=== PATIENT | female | born 1935 | race Caucasian/White ===

== ENCOUNTER 2018-01-06 19:06 | Inpatient (IN) | payer OTHER ==
[~2018-01-06] VITALS: Ht 162.6 cm; Wt 54.4 kg
--- NOTE | 2018-01-06 19:34 | ED DYSPNEA/ASTHMA COMPLAINT ---
History of Present Illness General Chief Complaint: General Adult Stated Complaint: SOB,?PNEUMONIA Source: patient, family, old records Exam Limitations: no limitations Vital Signs & Intake/Output Vital Signs & Intake/Output Vital Signs Date Time Temp Pulse Resp B/P B/P Pulse O2 O2 Flow FiO2 Mean Ox Delivery Rate 01/06 2233 98.3 66 22 99/55 97 Nasal 1.5L Cannula 01/06 2146 98.3 88 16 136/79 98 Nasal 1.5L Cannula 01/06 2002 99 Nasal 1.5L Cannula 01/06 1950 100 Nasal 1.5L Cannula 01/06 1927 99.3 84 18 149/87 93 Room Air ED Intake and Output 01/07 0000 01/06 1200 Intake Total 180 Output Total Balance 180 Intake, Oral 180 Allergies Coded Allergies: Penicillins (RASH 01/06/18) amlodipine (RASH 01/06/18) atorvastatin (MUSCLE PAIN 01/06/18) cefuroxime (From CEFTIN) (GI UPSET 01/06/18) moxifloxacin (HALLUCINATIONS BUT PT STATES LEVAQUIN WORKS 01/06/18) simvastatin (RASH 01/06/18) vancomycin (GI UPSET 01/06/18) Reconcile Medications Aspirin (Aspirin*) 325 MG TABLET 1 TAB PO DAILY HEART/BLOOD (Reported) Azelastine/Fluticasone (Dymista Nasal [place]) 137 MCG-50 MCG/SPRAY SPRAY.PUMP 2 SPRAY NASB BID ALLERGIES (Reported) Biotin 5,000 MCG TAB.SUBL 1 TAB PO DAILY SUPPLEMENT (Reported) Calcium Carbonate/Vitamin D3 (Caltrate 600 + D Tablet) (Unknown Strength) TABLET (Unknown Dose) PO DAILY SUPPLEMENT (Reported) Cholecalciferol (Vitamin D3) (Vitamin D) (Unknown Strength) TABLET (Unknown Dose) PO DAILY SUPPLEMENT (Reported) Hydrochlorothiazide 25 MG TABLET 1 TAB PO QAM DIURETIC (Reported) Levothyroxine Sodium (Synthroid) 100 MCG TABLET 1 TAB PO DAILY AC THYROID ( Reported) Metoprolol Succinate 25 MG TAB 0.5 TAB PO DAILY HEART/BP (Reported) [place]-3 Fatty Acids/Fish Oil (Fish Oil 1,200 MG Softgel) 360 MG-1,200 MG CAPSULE 1 SGL PO QPM SUPPLEMENT (Reported) Vitamin B Complex 1 EACH CAPSULE 1 CAP PO DAILY SUPPLEMENT (Reported) Triage Note: PT TO TRIAGE C/O SOB THAT BEGAN TODAY WITH +PRODUCTIVE COUGH. PER PT HX OF PNEUMONIA. 02 SAT 93% IN TRIAGE ON RA, BROUGHT TO ROOM 1 AND PLACED ON 2L NC WITH IMPROVEMENT TO 96%. Triage Nurses Notes Reviewed? yes Onset: Abrupt Duration: day(s): (1), constant Timing: recent history Severity: moderate Activities at Onset: none Prior Episodes/Possible Cause: chronic episodes Modifying Factors: Worsens With: other (coughing). Associated Symptoms: cough, fever, chills HPI: 82-year-old female History of high cholesterol hypertension bronchiectasis with recurrent pneumonia not on home o2 presents with family for evaluation playing of sudden onset of shortness of breath cough productive of clear sputum subjective fever chills since today. She did not take anything for her symptoms no sick contacts. She denies chest pain palpitations hemoptysis abdominal pain leg swelling. She does not smoke. This episode feels similar to her previous episodes of pneumonia. (Emmanuel Camejo) Past History Travel History Traveled to [place] past 21 day No Medical History Any Pertinent Medical History? see below for history Neurological: NONE EENT: NONE Cardiovascular: hypertension, hyperlipidemia, AORTIC ANEURYSM Respiratory: pneumonia Gastrointestinal: NONE Hepatic: NONE Renal: NONE Musculoskeletal: NONE Psychiatric: NONE Endocrine: HYPOTHYROID Blood Disorders: NONE Cancer(s): NONE TIP SCOURER/Reproductive: NONE History of MRSA: No History of VRE: No History of CDIFF: No Pneumonia Vaccine: 02/01/13 Influenza Vaccine: 06/27/13 Surgical History Surgical History: AAA REPAIR Psychosocial History Who do you live with Patient/Self Services at Home None What is your primary language Lithuanian Tobacco Use: Never used Family History Hx Contributory? No (Emmanuel Camejo) Review of Systems Review of Systems Constitutional: Reports: see HPI. Comments Review of systems: See HPI, All other systems negative. Constitutional, no chills no fever, no malaise HEENT: no sore throat no congestion Cardiovascular: No chest pain , no palpitation Skin: no rashes, no change in skin Respiratory: SEE HPI GI: No nausea no vomiting, no diarrhea Muscle skeletal: No joint pain, no back pain Neurologic: , no headache Heme/endocrine: No bruising Immunology: No lymphadenopathy (Emmanuel Camejo) Physical Exam Physical Exam General Appearance: alert, awake, moderate distress Respiratory: decreased breath sounds Comments: Well-developed well-nourished person in no acute distress HEENT: Normal EENT exam; PERRL, EOMI, HEAD is atraumatic. moist mucous membranes. Neck: Supple, no lymphadenopathy, normal range of motion Back: Nontender, no CVA tenderness. Full range of motion Cardiovascular: Regular rate and rhythms no murmur normal JVP Respiratory: Chest nontender.There were no bony deformities, no asymmetry. No respiratory distress. Patient 3-4 WORD /sentences diminished breath sounds bilaterally no rhonchi no rales Abdomen: Soft, nontender nondistended, no appreciable organomegalyNo ascites. Extremity: No edema, full range of motion of extremities Neuro: Alert oriented x3, motor sensory normal. There were no obvious focal neurologic abnormalities. Skin: No appreciable rash on exposed skin, skin is warm and dry. Psych: Mood and affect is normal, memory and judgment is normal. Core Measures ACS in differential dx? Yes CVA/TIA Diagnosis No Sepsis Present: No Sepsis Focused Exam Completed? No (Uday TORRES,Emmanuel) Progress Differential Diagnosis: asthma, AMI, bronchitis, musculoskeletal pain, pericarditis, pulmonary embolism, pneumonia, pneumothorax, unstable angina Plan of Care: Orders Procedure Date/time Status Nothing by Mouth 01/07 B Active CBC WITHOUT DIFFERENTIAL 01/07 600 Active BASIC ELECTROLYTES PLUS BUN&CR 01/07 06 Active SPECIMEN TO BE OBTAINED 01/07 0004 Active STREP PNEUMO URINARY ANTIGEN 01/07 0004 Active LEGIONELLA URINARY ANTIGEN 01/07 0004 Active SWALLOW EVALUATION 01/07 UNK Active TRC EVALUATION (GEN) 01/06 2350 Active OXYGEN SETUP (GEN) 01/06 235 Active Pathway - chart 01/06 235 Active House Staff 01/06 235 Active Patient Data 01/06 2325 Active Intake & Output 01/06 214 Active OXYGEN SETUP (GEN) 01/06 2117 Active Saline Lock 01/06 2117 Active Admit to inpatient 01/06 2117 Active Vital Signs 01/06 2117 Active Activity/Ambulation 01/06 2117 Active Code Status 01/06 2117 Active Telemetry/Transit Bus Operator 01/06 1946 Active RAPID VIRAL INFLUENZA A 01/06 193 Complete BLOOD CULTURE 01/06 1915 Active TROPONIN LEVEL 01/06 1915 Complete LACTIC ACID 01/06 1915 Complete COMPREHENSIVE METABOLIC PANEL 01/06 1915 Complete CBC WITHOUT DIFFERENTIAL 01/06 1915 Complete B-TYPE NATRIURETIC PEP (BNP) 01/06 1915 Complete EKG 01/06 190 Active VTE Mechanical Prophylaxis 01/06 UNK Active Current Medications Sig/Rose Start time Last Medication Dose Stop Time Status Admin Enoxaparin Sodium 40 MG DAILY 01/07 1000 UNVr (Lovenox) Sodium Chloride 1,000 ML Q10H 01/07 0015 UNVr (Normal Saline 0.9%) Laboratory Tests 01/06/18 2215: Lactic Acid Cancelled 01/06/18 2100: Anion Gap 10, Estimated GFR > 60, BUN/Creatinine Ratio 20.0, Glucose 106 H, Lactic Acid 1.6, Calcium 9.7, Total Bilirubin 0.8, AST 29, ALT 25, Alkaline Phosphatase 95, Troponin I < 0.01, Jxi-V-[place] Pept 585 H, Total Protein 7.7, Albumin 3.6, Globulin 4.1, Albumin/Globulin Ratio 0.9 L 01/06/181999: CBC w Diff NO MAN DIFF REQ, RBC 4.83, MCV 87.9, MCH 29.3, MCHC 33.3, RDW 15.6 H , MPV 8.4, Gran % 89.8 H, Lymphocytes % 3.6 L, Monocytes % 6.2, Eosinophils % 0.2, Basophils % 0.2, Absolute Granulocytes 7.9 H, Absolute Lymphocytes 0.3 L, Absolute Monocytes 0.5, Absolute Eosinophils 0, Absolute Basophils 0 Microbiology 01/07 0004 URINE ROUT: Legionella Antigen - ORD 01/08 4 URINE ROUT: Streptococcus pneumoniae Antigen (M - ORD 01/06 2100 NASOPHARYN: Influenza Virus A & B Rapid Smear - COMP 01/07 2040 BLOOD: Blood Culture - RECD 01/06 1815 BLOOD: Blood Culture - RECD Labs ordered patient medicated with Solu-Medrol breathing treatment Patient reports feeling improved after DuoNeb 2119 repeat evaluation should resting in no apparent distress 93% on 2 L discussed with him her x-ray findings and plan of care. Diagnostic Imaging: Viewed by Me: Radiology Read. Discussed w/RAD: Radiology Read. Radiology Impression: PATIENT: SAVAGE ANN PRESENT AGE: 82 PATIENT ACCOUNT NO: [id number] : 37 LOCATION: [facility] ORDERING PHYSICIAN: Emmanuel TORRES SERVICE DATE: 01/06/18 EXAM TYPE: RAD - XRY- PORTABLE CHEST XRAY EXAMINATION: CHEST 1 VIEW CLINICAL INFORMATION: Cough, fever , shortness of breath. COMPARISON: 08/06/2013. TECHNIQUE: An AP view of the chest is provided. FINDINGS: The cardiac silhouette is enlarged, though stable. Intact midline sternal wires are present. There is a moderate right pleural effusion and a small left pleural effusion. There is associated airspace disease. The osseous structures are stable. IMPRESSION: Stable cardiomegaly with right greater than left bilateral pleural effusions with associated airspace disease. DICTATED BY: Marty Ovalles MD DATE/TIME DICTATED:01/06/182041 MODEL MAKER FIBERGLASS:JAMAL DATE/TIME TRANSCRIBED:01/06/182041 CONFIDENTIAL, DO NOT COPY WITHOUT APPROPRIATE AUTHORIZATION. <Electronically signed in Other Vendor System> SIGNED BY: Mraty Ovalles MD 01/06/182044, PATIENT: SAVAGE ANN PRESENT AGE: 82 PATIENT ACCOUNT NO: [id number] : 37 LOCATION: [facility] ORDERING PHYSICIAN: Emmanuel TORRES SERVICE DATE: 01/06/18 EXAM TYPE: CAT - CT CHEST WO IV CONTRAST EXAMINATION : CT CHEST WITHOUT CONTRAST CLINICAL INFORMATION: Cough, fever, dyspnea. COMPARISON: Same day chest radiograph. TECHNIQUE: Contiguous axial thin section helical images of the chest were performed without contrast. The data set was reformatted in the coronal and sagittal planes and reviewed on an independent workstation. DLP: 178 mGy-cm. FINDINGS: The heart is of normal size. There is no pericardial effusion. There is neither mediastinal, hilar nor axillary lymphadenopathy. There are no chest wall masses. There is a moderate right pleural effusion. There is a wedge-shaped opacification within both lower lobes with bronchiectasis. There is scarring within the medial right upper lobe. Images of the upper abdomen demonstrate that the liver is of normal size and attenuation without focal lesions. Normal adrenal glands are identified. Bone windows: Neither sclerotic nor lytic bone lesions are identified. There is mild to moderate osteophyte formation throughout the thoracic spine. IMPRESSION: Moderate right pleural effusion. Bilateral lower lobe consolidations. Medial right upper lobe scarring. Recommendation is for a followup chest series to be obtained following treatment and/or resolution of symptoms to assure resolution of this appearance. DICTATED BY: Marty Ovalles MD DATE/TIME DICTATED:04/05/18 / 2316 MODEL MAKER FIBERGLASS:JAMAL DATE/TIME TRANSCRIBED:01/06/182315 CONFIDENTIAL, DO NOT COPY WITHOUT APPROPRIATE AUTHORIZATION. <Electronically signed in Other Vendor System> SIGNED BY: Marty Ovalles MD 01/06/182321 Initial ED EKG: normal intervals, normal p-waves, normal QRS complex, normal sinus rhythm, nonspecific ST T wave chg Rhythm Strip: normal sinus rhythm (Emmanuel Camejo) Departure Departure Time of Disposition: 2234 Disposition: STILL A PATIENT Condition: Stable Clinical Impression Primary Impression: Pneumonia Secondary Impressions: Pleural effusion Referrals: Gordon Mcmillan MD, I. (PCP/Family) Departure Forms: Customer Survey General Discharge Information Admission Note Spoke With: Kelton Orlando MD Documentation of Exam: Documentation of any treatments & extenuating circumstances including Concerns Regarding Discharge (functional status, medication knowledge or non-compliance, living conditions, etc.) that warrant an admission rather than observation: IV antibiotics, IV steroids trend labs premature discharge would BE medically harmful respiratory treatments when necessary PulM consult (Emmanuel Camejo) PA/FORENSIC ANTHROPOLOGIST Co-Sign Statement Statement: ED Attending supervision documentation- x I saw and evaluated the patient. I have also reviewed all the pertinent lab results and diagnostic results. I agree with the findings and the plan of care as documented in the PA's/FORENSIC ANTHROPOLOGIST's documentation. Hx bronchiectasis with pneumonia [] I have reviewed the ED Record and agree with the PA's/FORENSIC ANTHROPOLOGIST's documentation. [] Additions or exceptions (if any) to the PAs/FORENSIC ANTHROPOLOGIST's note and plan are summarized below: [] (Ankur VELAZCO,Rudi) Critical Care Note Critical Care Note Critical Care Time: non-applicable (Emmanuel Camejo)
[2018-01-06 20:21] LABS: ABSOLUTE BASOPHIL COUNT 0 /CUMM (0.0-0.2); ABSOLUTE EOSINOPHIL COUNT 0 /CUMM (0.0-0.7); ABSOLUTE GRANULOCYTE CT 7.9 /CUMM (1.4-6.5); ABSOLUTE LYMPH COUNT 0.3 /CUMM (1.2-3.4); ABSOLUTE MONOCYTE COUNT 0.5 /CUMM (0.10-0.60); BASOPHIL % 0.2 % (0.0-2.0); EOSINOPHIL % 0.2 % (0-5); GRANULOCYTE % 89.8 % (42.2-75.2); HEMATOCRIT 42.5 % (37-47); MEAN CORPUSCULAR HGB 29.3 PG (27.0-31.0); MEAN CORPUSCULAR HGB CONC 33.3 G/DL (33.0-37.0); MEAN CORPUSCULAR VOLUME 87.9 FL (81.0-99.0); MEAN PLATELET VOLUME 8.4 FL (7.4-10.4); PLATELET COUNT 262 /CUMM (130-400); RBC DISTRIBUTION WIDTH 15.6 % (11.5-14.5); RED BLOOD CELL CT 4.83 /CUMM (4.20-5.40); WHITE BLOOD CELL COUNT 8.8 /CUMM (4.8-10.8)
[2018-01-06] MEDS ORDERED: METOPROLOL SUCC25 M1 PO (20:24)
[2018-01-06] MEDS ORDERED: SYNTHROID100 MCG PO (20:24)
[2018-01-06] MEDS ORDERED: FISH OIL 1,2001 EAC4 PO (20:25)
[2018-01-06] MEDS ORDERED: DYMISTA NASAL S23 GM NASB (20:25)
[2018-01-06] MEDS ORDERED: HYDROCHLOROTHIA25 M1 PO (20:25)
[2018-01-06] MEDS ORDERED: CALTRATE 600 +1 EACH PO (20:26)
[2018-01-06] MEDS ORDERED: VITAMIN D1000 UNIT PO (20:26)
[2018-01-06] MEDS ORDERED: VITAMIN B COMP1 EACH PO (20:26)
[2018-01-06] MEDS ORDERED: ASPIRIN325 M2 PO (20:27)
[2018-01-06] MEDS ORDERED: BIOTIN5000 MC1 PO (20:27)
--- NOTE | 2018-01-06 20:45 | RADIOLOGY REPORT ---
EXAMINATION: CHEST 1 VIEW CLINICAL INFORMATION: Cough, fever, shortness of breath. COMPARISON: 08/06/2013. TECHNIQUE: An AP view of the chest is provided. FINDINGS: The cardiac silhouette is enlarged, though stable. Intact midline sternal wires are present. There is a moderate right pleural effusion and a small left pleural effusion. There is associated airspace disease. The osseous structures are stable. IMPRESSION: Stable cardiomegaly with right greater than left bilateral pleural effusions with associated airspace disease.
--- NOTE | 2018-01-06 23:22 | CT SCAN REPORT ---
EXAMINATION: CT CHEST WITHOUT CONTRAST CLINICAL INFORMATION: Cough, fever, dyspnea. COMPARISON: Same day chest radiograph. TECHNIQUE: Contiguous axial thin section helical images of the chest were performed without contrast. The data set was reformatted in the coronal and sagittal planes and reviewed on an independent workstation. DLP: 178 mGy-cm. FINDINGS: The heart is of normal size. There is no pericardial effusion. There is neither mediastinal, hilar nor axillary lymphadenopathy. There are no chest wall masses. There is a moderate right pleural effusion. There is a wedge-shaped opacification within both lower lobes with bronchiectasis. There is scarring within the medial right upper lobe. Images of the upper abdomen demonstrate that the liver is of normal size and attenuation without focal lesions. Normal adrenal glands are identified. Bone windows: Neither sclerotic nor lytic bone lesions are identified. There is mild to moderate osteophyte formation throughout the thoracic spine. IMPRESSION: Moderate right pleural effusion. Bilateral lower lobe consolidations. Medial right upper lobe scarring. Recommendation is for a followup chest series to be obtained following treatment and/or resolution of symptoms to assure resolution of this appearance.
--- NOTE | 2018-01-06 23:25 | History & Physical ---
Gordon Davila MD 01/06/18 2746: General Information and HPI MD Statement: I have seen and personally examined SAVAGE ANN and documented this H&P. The patient is a 82 year old F who presented with a patient stated chief complaint of [pneumonia]. Source of Information: patient, old records Exam Limitations: no limitations History of Present Illness: Patient is a 82-year-old female with an extensive past medical history significant for bronchiectasis with recurrent pneumonias and pleural effusions, thoracic aortic aneurysm status post repair with bioprosthetic aortic valve replacement, hypothyroidism, chronic hyponatremia, who presents to the [facility] ED complaining of dyspnea, weakness, productive cough for approximately 1-2 days. The Patient reports that she was in her usual state of health 2 days prior to admission and while at a dancing class she noted that she was becoming short of breath felt weak and fatigued. Upon waking the morning of presentation she noted a sore throat, nasal congestion, and productive cough with yellow sputum. Throughout the day she also had intermittent fever and chills. Patient also reports intermittent coughing after by mouth intake of fluids and food. She denies any she denies any chest pain, lightheadedness, dizziness, syncope, sick contacts. Allergies/Medications Home Med list Aspirin (Aspirin*) 325 MG TABLET 1 TAB PO DAILY HEART/BLOOD (Reported) Azelastine/Fluticasone (Dymista Nasal [place]) 137 MCG-50 MCG/SPRAY SPRAY.PUMP 2 SPRAY NASB BID ALLERGIES (Reported) Biotin 5,000 MCG TAB.SUBL 1 TAB PO DAILY SUPPLEMENT (Reported) Calcium Carbonate/Vitamin D3 (Caltrate 600 + D Tablet) (Unknown Strength) TABLET (Unknown Dose) PO DAILY SUPPLEMENT (Reported) Cholecalciferol (Vitamin D3) (Vitamin D) (Unknown Strength) TABLET (Unknown Dose) PO DAILY SUPPLEMENT (Reported) Hydrochlorothiazide 25 MG TABLET 1 TAB PO QAM DIURETIC (Reported) Levothyroxine Sodium (Synthroid) 100 MCG TABLET 1 TAB PO DAILY AC THYROID ( Reported) Metoprolol Succinate 25 MG TAB 0.5 TAB PO DAILY HEART/BP (Reported) [place]-3 Fatty Acids/Fish Oil (Fish Oil 1,200 MG Softgel) 360 MG-1,200 MG CAPSULE 1 SGL PO QPM SUPPLEMENT (Reported) Vitamin B Complex 1 EACH CAPSULE 1 CAP PO DAILY SUPPLEMENT (Reported) Past History Travel History Traveled to [place] past 21 day No Medical History Neurological: trigeminal neuralgia EENT: NONE Cardiovascular: hyperlipidemia, AORTIC ANEURYSM AORTIC ANEURYSM Respiratory: pneumonia Gastrointestinal: NONE Hepatic: NONE Renal: NONE Musculoskeletal: NONE Psychiatric: NONE Endocrine: HYPOTHYROID Blood Disorders: NONE Cancer(s): NONE CASH POSTER/Reproductive: NONE History of MRSA: No History of VRE: No History of CDIFF: No Pneumonia Vaccine: 02/01/13 Influenza Vaccine: 06/27/13 Surgical History Surgical History: thoracic aortic aneurysm REPAIR with bioprostetic aortic valve replacement Past Family/Social History Family History Relations & Conditions if any SON FH: aortic aneurysm MOTHER FH: breast cancer in first degree relative FH: [place] (myocardial infarction) Psychosocial History Where do you live? Home Who Do You Live With? self Services at Home: None Primary Language: Canadian Smoking Status: Never Smoked ETOH Use: occasional use Illicit Drug Use: denies illicit drug use Living Will? yes Functional Ability ADLs Independent: dressing, eating, toileting, bathing. Ambulation: independent IADLs Independent: shopping, housework, finances, food prep, telephone, transportation , medication admin. Review of Systems Review of Systems Constitutional: Reports: chills, fever, weakness. Denies: diaphoresis. EENTM: Reports: no symptoms. Cardiovascular: Reports: no symptoms. Respiratory: Reports: cough, short of breath, sputum production. GI: Reports: no symptoms. Genitourinary: Reports: no symptoms. Musculoskeletal: Reports: no symptoms. Skin: Reports: no symptoms. Exam & Diagnostic Data Last 24 Hrs of Vital Signs/I&O Vital Signs Date Time Temp Pulse Resp B/P B/P Pulse O2 O2 Flow FiO2 Mean Ox Delivery Rate 01/07 222 98.2 53 20 120/80 97 Nasal 2.0L Cannula 01/07 0038 98.1 64 20 118/71 97 Nasal 2.0L Cannula 01/06 2233 98.3 66 22 99/55 97 Nasal 1.5L Cannula 01/066 98.3 88 16 136/79 98 Nasal 1.5L Cannula 01/06 2002 99 Nasal 1.5L Cannula 01/06 1950 100 Nasal 1.5L Cannula 01/06 1927 99.3 84 18 149/87 93 Room Air Intake & Output 01/07 0800 01/07 0000 01/06 1600 Intake Total 250 180 Output Total Balance 250 180 Intake, IV 250 Intake, Oral 180 Physical Exam General Appearance Alert, Oriented X3, Cooperative, No Acute Distress Skin Temp/Moisture Exam: Warm/Dry Sepsis Skin Exam (color): Normal for Ethnicity HEENT Atraumatic, PERRLA, EOMI, Mucous Membr. moist/pink Cardiovascular Regular Rate, Normal S1, Normal S2, harsh 4/6 holosystolic murmur Lungs bibasilar crackles Abdomen Normal Bowel Sounds, Soft, No Tenderness Neurological Normal Speech, Normal Tone, Sensation Intact, Cranial Nerves 3-12 NL Extremities dependent 1+ pitting edema of the distal LEs L>R Vascular Normal Pulses, Pulses Symmetrical Last 24 Hrs of Labs/Juan Pablo: Laboratory Tests 01/06/182214: Lactic Acid Cancelled 01/06/182099: Anion Gap 10, Estimated GFR > 60, BUN/Creatinine Ratio 20.0, Glucose 106 H, Lactic Acid 1.6, Calcium 9.7, Total Bilirubin 0.8, AST 29, ALT 25, Alkaline Phosphatase 95, Troponin I < 0.01, Xbu-U-Jhsagslohxn Pept 585 H, Total Protein 7.7, Albumin 3.6, Globulin 4.1, Albumin/Globulin Ratio 0.9 L 01/06/181999: CBC w Diff NO MAN DIFF REQ, RBC 4.83, MCV 87.9, MCH 29.3, MCHC 33.3, RDW 15.6 H , MPV 8.4, Gran % 89.8 H, Lymphocytes % 3.6 L, Monocytes % 6.2, Eosinophils % 0.2, Basophils % 0.2, Absolute Granulocytes 7.9 H, Absolute Lymphocytes 0.3 L, Absolute Monocytes 0.5, Absolute Eosinophils 0, Absolute Basophils 0 Microbiology 01/07 0004 URINE ROUT: Legionella Antigen - ORD 01/08 4 URINE ROUT: Streptococcus pneumoniae Antigen (M - ORD 01/06 2100 NASOPHARYN: Influenza Virus A & B Rapid Smear - COMP 01/07 2040 BLOOD: Blood Culture - RECD 01/06 1815 BLOOD: Blood Culture - RECD Diagnostic Data EKG Results NSR HR 84, QTc 428 CXR Results The cardiac silhouette is enlarged, though stable. Intact midline sternal wires are present. There is a moderate right pleural effusion and a small left pleural effusion. There is associated airspace disease. The osseous structures are stable. IMPRESSION: Stable cardiomegaly with right greater than left bilateral pleural effusions with associated airspace disease. Other Results The heart is of normal size. There is no pericardial effusion. There is neither mediastinal, hilar nor axillary lymphadenopathy. There are no chest wall masses. There is a moderate right pleural effusion. There is a wedge-shaped opacification within both lower lobes with bronchiectasis. There is scarring within the medial right upper lobe. Images of the upper abdomen demonstrate that the liver is of normal size and attenuation without focal lesions. Normal adrenal glands are identified. Bone windows: Neither sclerotic nor lytic bone lesions are identified. There is mild to moderate osteophyte formation throughout the thoracic spine. IMPRESSION: Moderate right pleural effusion. Bilateral lower lobe consolidations. Medial right upper lobe scarring. Recommendation is for a followup chest series to be obtained following treatment and/or resolution of symptoms to assure resolution of this appearance. Assessment/Plan Assessment: Patient is a 82-year-old female with an extensive past medical history significant for bronchiectasis with recurrent pneumonias and pleural effusions, thoracic aortic aneurysm status post repair with bioprosthetic aortic valve replacement, hypothyroidism, chronic hyponatremia, who presents to the [facility] ED complaining of dyspnea, weakness, productive cough for approximately 1-2 days. Patient also reports intermittent coughing after by mouth intake of fluids and food. CXR shows bilateral pleural effusions, with associated issues disease, CT chest shows right-sided pleural effusion with bilateral lower lobe consolidations and medial right upper lobe scarring. Vital signs on presentation: T 99.3, 84, RR 18, BP 149/87, pulse ox 93% on 1.5 L nasal cannula Labs: No leukocytosis, 89.9% granulocytes, sodium 131, chloride 93, proBNP 585, lactic acid 1.6 Problem list #Pneumonia, possible aspiration or community-acquired pneumonia, patient has an extensive history of renal bronchiectasis with multiple episodes of pneumonia in recent years #Chronic medical problems Plan -Admit to general medicine -TRC/nebs -Wean off of supplemental O2 as tolerated - follow-up cultures and rapid flu test -By mouth levofloxacin, Patient has numerous allergies to antibiotics including penicillins, cefuroxime, vancomycin, moxifloxacin.she has tolerated levofloxacin in the past. In the ED she was given IV ceftriaxone and experienced severe palmoplantar pruritus requiring Atarax -Continue home medications -Radiology recommends follow-up CT after symptoms have resolved based on findings of upper lobe scarring -Swallow eval based on patient reported coughing after by mouth intake -Acute on chronic hyponatremia, sodium is within patient's baseline range. Diet: Heart healthy diet DVT prophylaxis: Cuco Shah CODE STATUS: Full code As Ranked By This Provider Problem List: 1. Pleural effusion 2. Pneumonia 3. Hyponatremia Core Measures/Misc (06/20) Acute Coronary Syndrome ACS Diagnosis: No Congestive Heart Failure Congestive Heart Failure Diagnosis No Cerebrovascular Accident CVA/TIA Diagnosis: No VTE (View Protocol) VTE Risk Factors Age>40 No Mechanical VTE Prophylaxis d/t N/A MechProphylax Ordered No VTE Pharm Prophylaxis d/t NA PharmProphylax ordered Sepsis (View protocol) Sepsis Present: No Cherelle Barajas 01/07/18 0322: General Information and HPI Allergies/Medications Allergies: Coded Allergies: Penicillins (RASH 01/06/18) amlodipine (RASH 01/06/18) atorvastatin (MUSCLE PAIN 01/06/18) cefuroxime (From CEFTIN) (GI UPSET 01/06/18) simvastatin (RASH 01/06/18) vancomycin (GI UPSET 01/06/18) moxifloxacin (HALLUCINATIONS BUT PT STATES LEVAQUIN WORKS 01/07/18) Resident Review Statement Resident Statement: examined this patient, discussed with manager internet, agreed with manager internet, reviewed images Other Findings: 82-year-old pleasant woman past medical history significant for bronchiectasis, frequent recurrent pneumonias last one in September 2017, hypertension, hyperlipidemia, coronary artery disease, hypothyroidism, GERD, thoracic abdominal aorta status post surgery, aortic valve replacement 2015, trigeminal neuralgia status post thermal ablation with residual left nasolabial numbness came in for evaluation of worsening shortness of breath since past 1 week. Endorses some congestion and productive yellowish sputum with cough. Most recent admission for pneumonia was in September 2017. In December 2016 she was admitted to the hospital for another episode of pneumonia at that time she also she also required drainage of her pleural effusion at [place]. She also endorses coughing when she drinks liquids or eating food at times, reports some sick contact with her grandkids Temperature MAXIMUM TEMPERATURE 99.3, respiratory 18, heart rate 84, blood pressure 149/87, saturating 97% on 1.5 L. exam was significant for harsh systolic murmur heard in all areas, RS bilateral equal air entry with mildly diminished breath sounds. +1 edema of left lower extremity which is chronic Labs significant for hemoglobin white count of 8.8, hemoglobin globin 14.1, hematocrit 42.5, platelet 262, monosodium 131, potassium 3.5, chloride 93, bicarbonate 28, BUNs 16, creatinine 0.8, lactic acid 1.6, normal LFTs, proBNP 585 Chest x-ray shows stable cardiomegaly and right more than left bilateral pleural effusion CT w/o contrast: moderate right pleural effusion. There is a wedge-shaped opacification within both lower lobes with bronchiectasis. There is scarring within the medial right upper lobe. Assessment and plan; Pneumonia in the setting of Bronchiectasis: Admitted to general medicine floor, vitals per protocol TRC/nebs was given 125 IV Solu-Medrol in the ED, supplemental oxygen Patient was given IV ceftriaxone after which she experienced some itching of her palms and was given Atarax after which her symptoms subsided She does have extensive allergies to medications none including penicillin, ceftriaxone, simvastatin, amlodipine, and she was given moxifloxacin and her last admission in September at the [facility] to which she did have a reaction to. States that she did not have any reaction to erythromycin or levofloxacin. Will start PO levofloxacin (don't have IV) She was given azithromycin in the ED Watch for prolonged QTC, her last QTC was [address] recommending a repeat CT scan for resolution of symptoms/findings There is some suspicion for aspiration, swallow eval in morning. Hyponatremia Her hyponatremia is chronic with baseline (132-133) continue to monitor. Hypertension/Coronary artery disease Continue with Toprol, hydrochlorothiazide and aspirin Hypothyroidism continue levothyroxine DVT prophylaxis :subcutaneous Lovenox Full code [email or web address] 01/07/18 0536: Attending MD Review Statement Attending Statement Attending MD Statement: examined this patient, discuss w/resident/PA/TOOL RENTAL TECHNICIAN, agreed w/resident/PA/TOOL RENTAL TECHNICIAN, reviewed EMR data (avail), reviewed images, amended to note Attending Assessment/Plan: CC: Productive cough PMH: HTN, HLD, CAD, hypothyroidism, GERD, bronchiectasis, repair of thoracic aortic aneurysm with aortic valve replacement, trigeminal neuralgia Patient came to ER for 2 day history of fatigue, dyspnea on exertion, productive cough with clear sputum production, feeling fever and chills, nasal congestion. Patient's symptom were getting progressively worse, has history of recurrent pneumonia in the past with recurrent pleural effusion so she came to ER for evaluation. On further questioning patient endorses occasional coughing on swallowing but not all the time. Does not recall recent such episode. No vomiting, may have sick contact but she is unclear about it. Otherwise complete ROS unremarkable. Vitals: T max 99.3, pulse 84, respiration 18, blood pressure 149/87, saturating 93% on 2 L nasal cannula On exam: A O 3, cooperative, no acute distress, neck supple, JVD normal, no lymphadenopathy, mucosa moist, no focal neurological deficit, no dependent edema , no obvious skin rashes or inflammation CVS: S1-S2, RRR, harsh systolic murmur most prominent in mitral area, even radiates to axilla and back. RS: Bibasilar rhonchi. Abdomen: Soft, NT, ND, bowel sounds present. Chest x-ray: Stable cardiomegaly with right greater than left bilateral pleural effusions with associated airspace disease. CT chest without IV contrast: Moderate right pleural effusion. Bilateral lower lobe consolidations. Medial right upper lobe scarring. Recommendation is for a followup chest series to be obtained following treatment and/or resolution of symptoms to assure resolution of this appearance. Assessment and plan 82-year-old female with multiple comorbidities and history of recurrent pneumonia presented in ER for 2 day history of productive cough with clear sputum, fatigue, fever, chills, shortness of breath. She has mild left shift but no significant leukocytosis, very low-grade temperature. She has rhonchi on auscultation bilaterally basis.chest x-ray was not very clear so CT chest was obtained which confirms the finding of bilateral lower lobe consolidation. Patient most likely has community-acquired pneumonia but she also endorses history of coughing occasionally with food intake but denies obvious choking. Patient has several medication allergies and developed a rash after ceftriaxone in ER. We will continue levofloxacin. + Community-acquired pneumonia + History of HTN, HLD, CAD, hypothyroidism, GERD, bronchiectasis, repair of thoracic aortic aneurysm with aortic valve replacement, trigeminal neuralgia - Admit to general medicine - Try to wean off oxygen - Continue IV levofloxacin - TRC nebulization with albuterol and ipratropium scheduled and when necessary - Mucinex scheduled twice a day - Continue rest of the home medications - Adequate pain control - DVT prophylaxis - Swallow evaluation in a.m.
[2018-01-07 02:22] VITALS: BP 120/80
--- NOTE | 2018-01-07 05:37 | Admission Certification ---
Admission Certification Certification Statement - As attending physician, I certify that at the time of - admission, based on clinical presentation, severity of - symptoms, need for further diagnostic testing and - therapeutic interventions, and risk of adverse outcomes - without in-hospital treatment, in my clinical assessment, - this patient requires an acute hospital stay for a minimum - of two nights or longer. I have also considered psychsocial - factors such as support system, advanced age, financial - issues, cognitive issues, and failed out-patient treatments, - past re-admission history, safety of patient, and lack of - compliance as applicable. Specific rationale supporting this admission is: community-acquired pneumonia
--- NOTE | 2018-01-07 07:40 | PN- Housestaff ---
Ravi Bolden 01/07/18 0740: Subjective Follow-up For: PNA Chronic hyponatremia - stable Subjective: Patient reports a wet cough without sputum production. She denies SOB, CP, n/v. Review of Systems Constitutional: Reports: see HPI. Objective Last 24 Hrs of Vital Signs/I&O Vital Signs Date Time Temp Pulse Resp B/P B/P Pulse O2 O2 Flow FiO2 Mean Ox Delivery Rate 01/07 2223 97.6 66 20 94/60 96 / 1859 72 92/62 / 1842 68 80/60 / 1728 96 Room Air / 1544 72 18 90/50 95 Room Air / 1425 98 Room Air / 1408 98.2 55 18 84/62 98 Nasal 1.0L Cannula 01/07 1003 Nasal 2.0L Cannula 01/07 0836 120/80 01/07 0800 Nasal 2.0L Cannula 01/07 0222 98.2 53 20 120/80 97 Nasal 2.0L Cannula 01/07 0200 97 Nasal 2.0L Cannula 01/07 0038 98.1 64 20 118/71 97 Nasal 2.0L Cannula Intake & Output 01/07 1600 04/06 0800 04/06 0000 Intake Total 500 180 Output Total 200 700 Balance -200 -200 180 Intake, IV 250 Intake, Oral 250 180 Number 1 0 Bowel Movements Output, Urine 200 700 Patient 120 lb Weight Weight Reported by Patient Measurement Method Physical Exam General Appearance: Alert, Oriented X3, Cooperative, on 2LNC Cardiovascular: 3/6 systolic murmur Lungs: Mild BL wheezing Abdomen: Normal Bowel Sounds, Soft, No Tenderness Current Medications: Current Medications Sig/Rose Start time Last Medication Dose Route Stop Time Status Admin Acetaminophen 0 .STK-MED ONE 01/06 2031 DC PO Acetaminophen 650 MG ONCE ONE 01/06 2030 DC 01/06 PO 01/06 Albuterol Sulfate 3 ML EVERY 4 HRS/AWAKE 01/07 1200 AC 01/07 INH 0915 Albuterol Sulfate 3 ML ONCE ONE 01/06 1945 DC 01/06 INH 01/06 Aspirin 81 MG DAILY 01/07 1000 AC / PO 0836 Azithromycin 500 MG Q24H 01/07 2215 CAN Dextrose/Water 250 ML IV Azithromycin 500 MG ONCE ONE 01/06 2130 DC 01/06 Dextrose/Water 250 ML IV 01/06 Ceftriaxone Sodium 0 .STK-MED ONE 01/06 2217 DC .ROUTE Ceftriaxone Sodium 1,000 MG ONCE ONE 01/06 2130 DC 01/06 IV 01/06 Enoxaparin Sodium 40 MG DAILY 01/07 1000 AC / SC 0836 Famotidine 20 MG ONCE ONE 01/06 2245 DC 01/06 IV 01/06 Famotidine 0 .STK-MED ONE 01/06 2243 DC IV Hydrochlorothiazide 25 MG QAM 01/07 1000 AC 01/07 PO 0836 Hydroxyzine HCl 25 MG ONCE ONE 01/06 2245 DC 01/06 PO 01/06 Hydroxyzine HCl 0 .STK-MED ONE 01/06 2243 DC PO Ipratropium Ennice 2.5 ML ONCE ONE 01/06 1945 DC 01/06 INH 01/06 Levofloxacin 500 MG DAILY 01/07 1000 AC 01/07 PO 0836 Levothyroxine Sodium 0.1 MG DAILY AC 01/07 0700 AC 01/07 PO 0641 Methylprednisolone 0 .STK-MED ONE 01/06 2001 DC .ROUTE Methylprednisolone 125 MG ONCE ONE 01/06 1945 DC 01/06 IV 01/06 Metoprolol Succinate 12.5 MG DAILY 01/07 1000 AC / PO 0836 Potassium Chloride 40 MEQ ONCE ONE 01/07 0330 DC 04/ PO / 0331 0517 Sodium Chloride 1,000 ML Q10H 01/07 0015 CAN IV Last 24 Hrs of Lab/Juan Pablo Results Last 24 Hrs of Labs/Mics: Laboratory Tests 01/07/18 0720: Anion Gap 11, Estimated GFR > 60, BUN/Creatinine Ratio 26.7 H, CBC w Diff Pending, WBC Pending, RBC Pending, Hgb Pending, Hct Pending, MCV Pending, MCH Pending, MCHC Pending, RDW Pending, Plt Count Pending, MPV Pending, Gran % Pending, Lymphocytes % Pending, Monocytes % Pending, Eosinophils % Pending, Basophils % Pending, Absolute Granulocytes Pending, Absolute Lymphocytes Pending , Absolute Monocytes Pending, Absolute Eosinophils Pending, Absolute Basophils Pending 01/06/18 2215: Lactic Acid Cancelled 01/06/18 2100: Anion Gap 10, Estimated GFR > 60, BUN/Creatinine Ratio 20.0, Glucose 106 H, Lactic Acid 1.6, Calcium 9.7, Total Bilirubin 0.8, AST 29, ALT 25, Alkaline Phosphatase 95, Troponin I < 0.01, [id number]-A-[id number] Pept 585 H, Total Protein 7.7, Albumin 3.6, Globulin 4.1, Albumin/Globulin Ratio 0.9 L 01/06/181999: CBC w Diff NO MAN DIFF REQ, RBC 4.83, MCV 87.9, MCH 29.3, MCHC 33.3, RDW 15.6 H , MPV 8.4, Gran % 89.8 H, Lymphocytes % 3.6 L, Monocytes % 6.2, Eosinophils % 0.2, Basophils % 0.2, Absolute Granulocytes 7.9 H, Absolute Lymphocytes 0.3 L, Absolute Monocytes 0.5, Absolute Eosinophils 0, Absolute Basophils 0 Microbiology 01/07 645 URINE ROUT: Legionella Antigen - COMP 01/07 645 URINE ROUT: Streptococcus pneumoniae Antigen (M - COMP 01/06 2100 NASOPHARYN: Influenza Virus A & B Rapid Smear - COMP 01/07 2040 BLOOD: Blood Culture - RECD 01/06 1815 BLOOD: Blood Culture - RECD Assessment/Plan Assessment: Ms. Garcia is a 82-year-old female with an extensive past medical history significant for bronchiectasis with recurrent pneumonias and pleural effusions s /p 5 thoracenteses, thoracic aortic aneurysm status post repair with bioprosthetic aortic valve replacement, hypothyroidism, chronic hyponatremia, who presents with SOB Problem list: CAP BL pleural effusions Chronic hyponatremia - stable Plan: TRC/nebs PRN Acapella PRN Pulm consult for pleural effusions and possible thoracentesis INR in a.m for possible thoracentesis Await records from [place] from Dr. Villarreal to inquire about past thoracenteses - faxed 4/6 MBS today for mildly delayed swallow initiation Diet: Heart healthy DVT prophylaxis: Enoxaparin Code: Full Problem List: 1. Pleural effusion 2. Hyponatremia Pain Ratin Pain Location: NA Pain Goal: Remain pain free Pain Plan: NA Tomorrow's Labs & Rationales: CBC BEP Margaux VELAZCO,Sarah 04/06/18 2004: Attending MD Review Statement Attending Statement Attending MD Statement: examined this patient, discuss w/resident/PA/TELE RN, agreed w/resident/PA/TELE RN, reviewed EMR data (avail), discussed with nursing, discussed with case mgmt, amended to note Attending Assessment/Plan: Patient seen and examined. Resting comfortably not in acute distress. Reports mild shortness of breath and cough. Denies chest pain or palpitations. She is afebrile. She is hemodynamically stable. On examination she has decreased energy particularly in the right lung base. Case discussed with Community Association Manager Adama Galaviz MD. Swallow evaluation done earlier on today noted. Problems: 1. Pneumonia; likely secondary to aspiration. 2. Bronchiectasis. 3. Chronic bilateral pleural effusions right greater than left; patient has underlying lung. She is status post several thoracocentesis in the past. She is not considered a good candidate for decortication. Plan: -Continue antibiotic therapy with Levaquin. -Aspiration precautions as recommended by the speech therapist. -Mobilize patient as tolerated. -Anticipate discharge in thenext 48 hours if she shows clinical improvement.
[2018-01-07 08:47] LABS: ABSOLUTE BASOPHIL COUNT 0 /CUMM (0.0-0.2); ABSOLUTE EOSINOPHIL COUNT 0 /CUMM (0.0-0.7); ABSOLUTE GRANULOCYTE CT 3.8 /CUMM (1.4-6.5); ABSOLUTE MONOCYTE COUNT 0 /CUMM (0.10-0.60); BASOPHIL % 0 % (0.0-2.0); EOSINOPHIL % 0 % (0-5); MEAN CORPUSCULAR VOLUME 88.2 FL (81.0-99.0)
[2018-01-07 09:02] LABS: ABSOLUTE LYMPH COUNT 0.2 /CUMM (1.2-3.4); HEMATOCRIT 38.4 % (37-47); MEAN CORPUSCULAR HGB 29.2 PG (27.0-31.0); MEAN CORPUSCULAR HGB CONC 33.1 G/DL (33.0-37.0); MEAN PLATELET VOLUME 8.6 FL (7.4-10.4); PLATELET COUNT 218 /CUMM (130-400); RBC DISTRIBUTION WIDTH 15.2 % (11.5-14.5); RED BLOOD CELL CT 4.35 /CUMM (4.20-5.40)
[2018-01-07 09:17] LABS: WHITE BLOOD CELL COUNT 4.1 /CUMM (4.8-10.8)
[2018-01-07 10:18] LABS: GRANULOCYTE % 93.7 % (42.2-75.2)
[2018-01-07 14:08] VITALS: BP 84/62
[2018-01-07 15:44] VITALS: BP 90/50
--- NOTE | 2018-01-07 15:48 | RADIOLOGY REPORT ---
EXAMINATION: XR MODIFIED BARIUM SWALLOW CLINICAL INFORMATION: Choking with solids and liquids. Rule out dysphagia. COMPARISON: None. TECHNIQUE: A modified barium swallow was performed with speech pathologist in attendance. Pur?e, honey thick, nectar thick, thin, bread, and cracker consistencies were given to the patient and the swallowing mechanism was observed fluoroscopically with several spot films taken using the last image hold feature. FLUOROSCOPY TIME: 3 minutes. FINDINGS: With all consistencies, mildly disordered oral phase of swallowing is seen with piecemeal deglutition noted. There is mild premature spillage of contrast into the valleculae observed with puree, honey, nectar, and thin consistencies with some pooling of contrast in the vallecula. With thin consistencies, there is spillage into the piriform sinus. With thin liquids, there is penetration of contrast seen with sensation, which persists even with chin tuck maneuver. Of note, there is a prominent posterior impression upon the cervical esophagus from an enlarged cricopharyngeus muscle. IMPRESSION: 1. Mildly disordered oral phase of swallowing with all consistencies with piecemeal deglutition, premature spillage of contrast into the vallecula and varying degrees of pooling of contrast within the vallecula. 2. Penetration of contrast with thin liquids is seen. 3. Incidental note is made of prominent cricopharyngeus muscle hypertrophy. 4. Speech pathologist assessment issued separately.
[2018-01-07 18:42] VITALS: BP 80/60
[2018-01-07 18:59] VITALS: BP 92/62
--- NOTE | 2018-01-07 19:06 | Cons- Pulmonary ---
General Information and HPI Consulting Request Date of Consult: 01/07/18 Requested By: med team History of Present Illness: Patient is a 82-year-old female with an extensive past medical history significant for bronchiectasis with recurrent pneumonias and pleural effusions, thoracic aortic aneurysm status post repair with bioprosthetic aortic valve replacement, hypothyroidism, chronic hyponatremia, who presents to the [facility] ED complaining of dyspnea, weakness, productive cough for approximately 1-2 days. The Patient reports that she was in her usual state of health 2 days prior to admission and while at a dancing class she noted that she was becoming short of breath felt weak and fatigued. Upon waking the morning of presentation she noted a sore throat, nasal congestion, and productive cough with yellow sputum. Throughout the day she also had intermittent fever and chills. Patient also reports intermittent coughing after by mouth intake of fluids and food. She denies any she denies any chest pain, lightheadedness, dizziness, syncope, sick contacts. 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 and has been tapped few times, and the effusion has been present since her heart surg Allergies/Medications Allergies: Coded Allergies: Penicillins (RASH 01/06/18) amlodipine (RASH 01/06/18) atorvastatin (MUSCLE PAIN 01/06/18) cefuroxime (From CEFTIN) (GI UPSET 01/06/18) simvastatin (RASH 01/06/18) vancomycin (GI UPSET 01/06/18) moxifloxacin (HALLUCINATIONS BUT PT STATES LEVAQUIN WORKS 01/07/18) Home Med List: Aspirin (Aspirin*) 325 MG TABLET 1 TAB PO DAILY HEART/BLOOD (Reported) Azelastine/Fluticasone (Dymista Nasal [place]) 137 MCG-50 MCG/SPRAY SPRAY.PUMP 2 SPRAY NASB BID ALLERGIES (Reported) Biotin 5,000 MCG TAB.SUBL 1 TAB PO DAILY SUPPLEMENT (Reported) Calcium Carbonate/Vitamin D3 (Caltrate 600 + D Tablet) (Unknown Strength) TABLET (Unknown Dose) PO DAILY SUPPLEMENT (Reported) Cholecalciferol (Vitamin D3) (Vitamin D) (Unknown Strength) TABLET (Unknown Dose) PO DAILY SUPPLEMENT (Reported) Hydrochlorothiazide 25 MG TABLET 1 TAB PO QAM DIURETIC (Reported) Levothyroxine Sodium (Synthroid) 100 MCG TABLET 1 TAB PO DAILY AC THYROID ( Reported) Metoprolol Succinate 25 MG TAB 0.5 TAB PO DAILY HEART/BP (Reported) Jackson-3 Fatty Acids/Fish Oil (Fish Oil 1,200 MG Softgel) 360 MG-1,200 MG CAPSULE 1 SGL PO QPM SUPPLEMENT (Reported) Vitamin B Complex 1 EACH CAPSULE 1 CAP PO DAILY SUPPLEMENT (Reported) Review of Systems Comments Constitutional: Reports: chills, fever, weakness. Denies: diaphoresis. EENTM: Reports: no symptoms. Cardiovascular: Reports: no symptoms. Respiratory: Reports: cough, short of breath, sputum production. GI: Reports: no symptoms. Genitourinary: Reports: no symptoms. Musculoskeletal: Reports: no symptoms. Skin: Reports: no symptoms. Past History Travel History Traveled to [place] past 21 day No Medical History Blood Transfusion Hx: No Neurological: trigeminal neuralgia EENT: NONE Cardiovascular: hypertension, hyperlipidemia, AORTIC ANEURYSM AORTIC ANEURYSM Respiratory: pneumonia Gastrointestinal: NONE Hepatic: NONE Renal: NONE Musculoskeletal: NONE Psychiatric: NONE Endocrine: HYPOTHYROID Blood Disorders: NONE Cancer(s): NONE PENCILLER/Reproductive: NONE Surgical History Surgical History: thoracic aortic aneurysm REPAIR with bioprostetic aortic valve replacement Family History Relations & Conditions If Any: SON FH: aortic aneurysm MOTHER FH: breast cancer in first degree relative FH: [place] (myocardial infarction) Psychosocial History Where Do You Live? Home Who Do You Live With? self Services at Home: None Primary Language: Palauan Smoking Status: Never Smoked ETOH Use: occasional use Illicit Drug Use: denies illicit drug use Living Will? yes Functional Ability ADLs Independent: dressing, eating, toileting, bathing. Ambulation: independent IADLs Independent: shopping, housework, finances, food prep, telephone, transportation , medication admin. Exam & Diagnostic Data Last 24 Hrs of Vital Signs/I&O Vital Signs Date Time Temp Pulse Resp B/P B/P Pulse O2 O2 Flow FiO2 Mean Ox Delivery Rate 01/07 1842 68 80/60 01/07 1728 96 Room Air 01/07 1544 72 18 90/50 95 Room Air 01/07 1425 98 Room Air 01/07 1408 98.2 55 18 84/62 98 Nasal 1.0L Cannula 01/07 1003 Nasal 2.0L Cannula 01/07 0836 120/80 01/07 0800 Nasal 2.0L Cannula 01/07 0222 98.2 53 20 120/80 97 Nasal 2.0L Cannula 01/07 0200 97 Nasal 2.0L Cannula 01/07 0038 98.1 64 20 118/71 97 Nasal 2.0L Cannula 01/06 2233 98.3 66 22 99/55 97 Nasal 1.5L Cannula 01/06 2146 98.3 88 16 136/79 98 Nasal 1.5L Cannula 01/06 2002 99 Nasal 1.5L Cannula 01/06 1950 100 Nasal 1.5L Cannula 01/06 1927 99.3 84 18 149/87 93 Room Air Intake & Output 01/07 1600 01/07 0800 01/07 0000 Intake Total 500 180 Output Total 200 700 Balance -200 -200 180 Intake, IV 250 Intake, Oral 250 180 Number 1 0 Bowel Movements Output, Urine 200 700 Patient 120 lb Weight Weight Reported by Patient Measurement Method Last 48 Hrs of Labs/Juan Pablo: Laboratory Tests 01/07/18 0720: Anion Gap 11, Estimated GFR > 60, BUN/Creatinine Ratio 26.7 H, CBC w Diff NO MAN DIFF REQ, RBC 4.35, MCV 88.2, MCH 29.2, MCHC 33.1, RDW 15.2 H, MPV 8.6, Gran % 93.7 H, Lymphocytes % 5.7 L, Monocytes % 0.6 L, Eosinophils % 0, Basophils % 0, Absolute Granulocytes 3.8, Absolute Lymphocytes 0.2 L, Absolute Monocytes 0 L, Absolute Eosinophils 0, Absolute Basophils 0 01/07/18 0600: Serum IgG Pending 01/06/18 2215: Lactic Acid Cancelled 01/06/18 2100: Anion Gap 10, Estimated GFR > 60, BUN/Creatinine Ratio 20.0, Glucose 106 H, Lactic Acid 1.6, Calcium 9.7, Total Bilirubin 0.8, AST 29, ALT 25, Alkaline Phosphatase 95, Troponin I < 0.01, [id number]-[id number] Pept 585 H, Total Protein 7.7, Albumin 3.6, Globulin 4.1, Albumin/Globulin Ratio 0.9 L 01/06/18 2000: CBC w Diff NO MAN DIFF REQ, RBC 4.83, MCV 87.9, MCH 29.3, MCHC 33.3, RDW 15.6 H , MPV 8.4, Gran % 89.8 H, Lymphocytes % 3.6 L, Monocytes % 6.2, Eosinophils % 0.2, Basophils % 0.2, Absolute Granulocytes 7.9 H, Absolute Lymphocytes 0.3 L, Absolute Monocytes 0.5, Absolute Eosinophils 0, Absolute Basophils 0 Microbiology 01/07 645 URINE ROUT: Legionella Antigen - COMP 01/07 645 URINE ROUT: Streptococcus pneumoniae Antigen (M - COMP 01/06 2100 NASOPHARYN: Influenza Virus A & B Rapid Smear - COMP Assessment/Plan Impression/Plan: General Appearance Alert, Oriented X3, Cooperative, No Acute Distress Skin Temp/Moisture Exam: Warm/Dry Sepsis Skin Exam (color): Normal for Ethnicity HEENT Atraumatic, PERRLA, EOMI, Mucous Membr. moist/pink Cardiovascular Regular Rate, Normal S1, Normal S2, harsh 4/6 holosystolic murmur Lungs bibasilar crackles Abdomen Normal Bowel Sounds, Soft, No Tenderness Neurological Normal Speech, Normal Tone, Sensation Intact, Cranial Nerves 3-12 NL Extremities dependent 1+ pitting edema of the distal LEs L>R Vascular Normal Pulses, Pulses Symmetrical MBS IMPRESSION: 1. Mildly disordered oral phase of swallowing with all consistencies with piecemeal deglutition, premature spillage of contrast into the vallecula and varying degrees of pooling of contrast within the vallecula. 2. Penetration of contrast with thin liquids is seen. 3. Incidental note is made of prominent cricopharyngeus muscle hypertrophy. 4. Speech pathologist assessment issued separately. Chest CT IMPRESSION: Moderate right pleural effusion. Bilateral lower lobe consolidations. Medial right upper lobe scarring. Recommendation is for a followup chest series to be obtained following treatment and/or resolution of symptoms to assure resolution of this appearance. DICTATED BY: Marty Ovalles MD DATE/TIME DICTATED:01/06/182315 IMPRESSION 82-year-old pleasant woman past medical history significant for bronchiectasis, frequent recurrent pneumonias last one in September 2017, hypertension, hyperlipidemia, coronary artery disease, hypothyroidism, GERD, thoracic abdominal aorta status post surgery, aortic valve replacement 2015, trigeminal neuralgia status post thermal ablation with residual left nasolabial numbness came in for evaluation of worsening shortness of breath since past 1 week. Issues Bronchiectasis now with bilateral lower lobe infiltrates sugg of pna - prob aspiration Upper lobe bronchiectasis with neg work up for CF, immunodef etc, and this is a sequalae from her prior recurrent infections possibly asp recurrent (prior sig trigeminal neuralgia s/p rx and now has occ asp) Chronic rt more than left effusion with trapped lung and cxr done now shows the same size effusion as in 9 months ago and no clinical evidence of empyema. ( effusion is prob due to post op pleurisy from her cardiac surg and now not thought to be a good candidate for decortication as her effusions are small and she has good performance status) Occ aspiration and MBS as noted above Other issues stable PLAN cont abx Asp precautions - see speech note Keep hob up at night NEbs prn only if she is wheezing Chest pt with acepella S sputum culture Nebs Dvt prophylaxis Consult Acknowledgment - Thank you for your consult request.
[2018-01-07 22:23] VITALS: BP 94/60
[2018-01-08 00:57] VITALS: BP 160/90
[2018-01-08 01:45] VITALS: BP 104/52
[2018-01-08 06:52] VITALS: BP 98/62
[2018-01-08 08:49] LABS: PT 11.8 SEC (9.4-12.5)
--- NOTE | 2018-01-08 10:07 | PN- Housestaff ---
See Addendum Subjective Follow-up For: PNA Chronic hyponatremia - stable Subjective: Patient seen and examined. No overnight events. Our office no complaint. He reports improvement in cough oxygen requirement has been tapered to room air blood pressure continues to run 100 to 90s/50s to 60s Review of Systems Constitutional: Reports: see HPI. Objective Last 24 Hrs of Vital Signs/I&O Vital Signs Date Time Temp Pulse Resp B/P B/P Pulse O2 O2 Flow FiO2 Mean Ox Delivery Rate 01/08 1423 98.6 67 18 102/72 96 Room Air 01/08 1147 95 Room Air / 0652 97.7 60 16 98/62 95 Room Air / 0145 64 104/52 / 0000 96 Room Air / 2223 97.6 66 20 94/60 96 / 1859 72 92/62 04/ 1842 68 80/60 / 1728 96 Room Air / 1544 72 18 90/50 95 Room Air Intake & Output 01/08 1600 01/08 0800 04/ 0000 Intake Total 800 50 360 Output Total 400 Balance 800 50 -40 Intake, IV 0 Intake, Oral 800 50 360 Number 0 Bowel Movements Output, Urine 400 Physical Exam General Appearance: Alert, Oriented X3, Cooperative Other Physical Findings: Cardiovascular: 3/6 systolic murmur Lungs: Mild BL wheezing Abdomen: Normal Bowel Sounds, Soft, No Tenderness Current Medications: Current Medications Sig/Rose Start time Last Medication Dose Route Stop Time Status Admin Albuterol Sulfate 3 ML EVERY 4 HRS/AWAKE 01/07 1200 AC 01/08 INH 1146 Aspirin 81 MG DAILY 01/07 1000 AC 01/08 PO 1004 Enoxaparin Sodium 40 MG DAILY 01/07 1000 AC 01/08 SC 1003 Hydrochlorothiazide 25 MG QAM 01/07 1000 DC / PO 0836 Levofloxacin 500 MG DAILY 01/07 1000 AC 01/08 PO 1002 Levothyroxine Sodium 0.1 MG DAILY AC 01/07 0700 AC 01/08 PO 0655 Metoprolol Succinate 12.5 MG DAILY 01/07 1000 AC / PO 0836 Last 24 Hrs of Lab/Juan Pablo Results Last 24 Hrs of Labs/Mics: Laboratory Tests 01/08/18 1015: CBC w Diff NO MAN DIFF REQ, RBC 4.08 L, MCV 88.9, MCH 29.4, MCHC 33.0, RDW 15.9 H, MPV 8.8, Gran % 80.6 H, Lymphocytes % 7.3 L, Monocytes % 11.4 H, Eosinophils % 0.4, Basophils % 0.3, Absolute Granulocytes 6.0, Absolute Lymphocytes 0.5 L, Absolute Monocytes 0.8 H, Absolute Eosinophils 0, Absolute Basophils 0 01/08/18 0750: PT 11.8, INR 1.08 Assessment/Plan Assessment: Ms. Garcia is a 82-year-old female with an extensive past medical history significant for bronchiectasis with recurrent pneumonias and pleural effusions s /p 5 thoracenteses, thoracic aortic aneurysm status post repair with bioprosthetic aortic valve replacement, hypothyroidism, chronic hyponatremia, who presents with SOB Problem list: CAP BL pleural effusions Chronic hyponatremia - stable Plan: -TRC/nebs PRN -Acapella PRN -Follow-up sputum culture -Aspiration precautions -Keep head of the bed up -Continue antibiotics for 5 days Levaquin for 5 days -Adama Galaviz MD consulted, no plan for thoracocentesis -Await records from [place] from Dr. Villarreal to inquire about past thoracenteses - faxed 01/07 -MBS done yesterday SEE results for more detail recommendations for regular diet and nectar liquids Diet: Heart healthy, nectar thick liquids DVT prophylaxis: Enoxaparin Code: Full Problem List: 1. Pneumonia Pain Ratin Pain Location: n/a Pain Goal: Pain 4 or less Pain Plan: prn Tomorrow's Labs & Rationales: cbc
[2018-01-08 11:57] LABS: ABSOLUTE BASOPHIL COUNT 0 /CUMM (0.0-0.2); ABSOLUTE EOSINOPHIL COUNT 0 /CUMM (0.0-0.7); ABSOLUTE LYMPH COUNT 0.5 /CUMM (1.2-3.4); ABSOLUTE MONOCYTE COUNT 0.8 /CUMM (0.10-0.60); BASOPHIL % 0.3 % (0.0-2.0); EOSINOPHIL % 0.4 % (0-5); GRANULOCYTE % 80.6 % (42.2-75.2); HEMATOCRIT 36.3 % (37-47); MEAN CORPUSCULAR HGB 29.4 PG (27.0-31.0); MEAN CORPUSCULAR VOLUME 88.9 FL (81.0-99.0); MEAN PLATELET VOLUME 8.8 FL (7.4-10.4); PLATELET COUNT 223 /CUMM (130-400); RBC DISTRIBUTION WIDTH 15.9 % (11.5-14.5); RED BLOOD CELL CT 4.08 /CUMM (4.20-5.40)
[2018-01-08 12:24] LABS: WHITE BLOOD CELL COUNT 7.4 /CUMM (4.8-10.8)
--- NOTE | 2018-01-08 13:11 | PN- Pulmonary ---
Subjective HPI/Critical Care Issues: Doing much improved stable No further cough off oxygen Objective Current Medications: Current Medications Sig/Rose Start time Last Medication Dose Route Stop Time Status Admin Albuterol Sulfate 3 ML EVERY 4 HRS/AWAKE 01/07 1200 AC 01/08 INH 1146 Aspirin 81 MG DAILY 01/07 1000 AC 01/08 PO 1004 Enoxaparin Sodium 40 MG DAILY 01/07 1000 AC 01/08 SC 1003 Hydrochlorothiazide 25 MG QAM 01/07 1000 DC 01/07 PO 0836 Levofloxacin 500 MG DAILY 01/07 1000 AC 01/08 PO 1002 Levothyroxine Sodium 0.1 MG DAILY AC 01/07 0700 AC 01/08 PO 0655 Metoprolol Succinate 12.5 MG DAILY 01/07 1000 AC 01/07 PO 0836 Sodium Chloride 500 ML BOLUS ONE 01/07 1415 DC 01/07 IV 01/07 1514 1423 Vital Signs & I&O Last 24 Hrs of Vitals and I&O: Vital Signs Date Time Temp Pulse Resp B/P B/P Pulse O2 O2 Flow FiO2 Mean Ox Delivery Rate 01/08 1147 95 Room Air 01/08 0652 97.7 60 16 98/62 95 Room Air 01/08 0145 64 104/52 04/ 0000 96 Room Air / 2223 97.6 66 20 94/60 96 04/ 1859 72 92/62 04/ 1842 68 80/60 / 1728 96 Room Air 04/ 1544 72 18 90/50 95 Room Air 04/ 1425 98 Room Air 04/ 1408 98.2 55 18 84/62 98 Nasal 1.0L Cannula Intake & Output 01/08 1600 01/08 0800 01/08 0000 Intake Total 50 360 Output Total 400 Balance 50 -40 Intake, IV 0 Intake, Oral 50 360 Number 0 Bowel Movements Output, Urine 400 Laboratory Tests 01/08 01/08 1015 0750 Coagulation PT (9.4 - 12.5 SEC) 11.8 INR (0.90 - 1.19) 1.08 Hematology CBC w Diff NO MAN DIFF REQ WBC (4.8 - 10.8 /CUMM) 7.4 RBC (4.20 - 5.40 /CUMM) 4.08 L Hgb (12.0 - 16.0 G/DL) 12.0 Hct (37 - 47 %) 36.3 L MCV (81.0 - 99.0 FL) 88.9 MCH (27.0 - 31.0 PG) 29.4 MCHC (33.0 - 37.0 G/DL) 33.0 RDW (11.5 - 14.5 %) 15.9 H Plt Count (130 - 400 /CUMM) 223 MPV (7.4 - 10.4 FL) 8.8 Gran % (42.2 - 75.2 %) 80.6 H Lymphocytes % (20.5 - 51.1 %) 7.3 L Monocytes % (1.7 - 9.3 %) 11.4 H Eosinophils % (0 - 5 %) 0.4 Basophils % (0.0 - 2.0 %) 0.3 Absolute Granulocytes (1.4 - 6.5 /CUMM) 6.0 Absolute Lymphocytes (1.2 - 3.4 /CUMM) 0.5 L Absolute Monocytes (0.10 - 0.60 /CUMM) 0.8 H Absolute Eosinophils (0.0 - 0.7 /CUMM) 0 Absolute Basophils (0.0 - 0.2 /CUMM) 0 01/07/ 0720 0600 2215 Chemistry Sodium (137 - 145 mmol/L) 132 L Potassium (3.5 - 5.1 mmol/L) 4.3 Chloride (98 - 107 mmol/L) 97 L Carbon Dioxide (22 - 30 mmol/L) 24 Anion Gap (5 - 16) 11 BUN (7 - 17 mg/dL) 16 Creatinine (0.5 - 1.0 mg/dL) 0.6 Estimated GFR (>60 ml/min) > 60 BUN/Creatinine Ratio (7 - 25 %) 26.7 H Lactic Acid Cancelled Hematology CBC w Diff NO MAN DIFF REQ WBC (4.8 - 10.8 /CUMM) 4.1 L RBC (4.20 - 5.40 /CUMM) 4.35 Hgb (12.0 - 16.0 G/DL) 12.7 Hct (37 - 47 %) 38.4 MCV (81.0 - 99.0 FL) 88.2 MCH (27.0 - 31.0 PG) 29.2 MCHC (33.0 - 37.0 G/DL) 33.1 RDW (11.5 - 14.5 %) 15.2 H Plt Count (130 - 400 /CUMM) 218 MPV (7.4 - 10.4 FL) 8.6 Gran % (42.2 - 75.2 %) 93.7 H Lymphocytes % (20.5 - 51.1 %) 5.7 L Monocytes % (1.7 - 9.3 %) 0.6 L Eosinophils % (0 - 5 %) 0 Basophils % (0.0 - 2.0 %) 0 Absolute Granulocytes (1.4 - 6.5 /CUMM) 3.8 Absolute Lymphocytes (1.2 - 3.4 /CUMM) 0.2 L Absolute Monocytes (0.10 - 0.60 /CUMM) 0 L Absolute Eosinophils (0.0 - 0.7 /CUMM) 0 Absolute Basophils (0.0 - 0.2 /CUMM) 0 Other Body Source Serum IgG Pending 01/06 Chemistry Sodium (137 - 145 mmol/L) 131 L Potassium (3.5 - 5.1 mmol/L) 3.5 Chloride (98 - 107 mmol/L) 93 L Carbon Dioxide (22 - 30 mmol/L) 28 Anion Gap (5 - 16) 10 BUN (7 - 17 mg/dL) 16 Creatinine (0.5 - 1.0 mg/dL) 0.8 Estimated GFR (>60 ml/min) > 60 BUN/Creatinine Ratio (7 - 25 %) 20.0 Glucose (65 - 99 mg/dL) 106 H Lactic Acid (0.7 - 2.1 mmol/L) 1.6 Calcium (8.4 - 10.2 mg/dL) 9.7 Total Bilirubin (0.2 - 1.3 mg/dL) 0.8 AST (14 - 36 U/L) 29 ALT (9 - 52 U/L) 25 Alkaline Phosphatase (<127 U/L) 95 Troponin I (< 0.11 ng/ml) < 0.01 [id number] Pept (<125 pg/mL) 585 H Total Protein (6.3 - 8.2 g/dL) 7.7 Albumin (3.5 - 5.0 g/dL) 3.6 Globulin (1.9 - 4.2 gm/dL) 4.1 Albumin/Globulin Ratio (1.1 - 2.2 %) 0.9 L Hematology CBC w Diff NO MAN DIFF REQ WBC (4.8 - 10.8 /CUMM) 8.8 RBC (4.20 - 5.40 /CUMM) 4.83 Hgb (12.0 - 16.0 G/DL) 14.1 Hct (37 - 47 %) 42.5 MCV (81.0 - 99.0 FL) 87.9 MCH (27.0 - 31.0 PG) 29.3 MCHC (33.0 - 37.0 G/DL) 33.3 RDW (11.5 - 14.5 %) 15.6 H Plt Count (130 - 400 /CUMM) 262 MPV (7.4 - 10.4 FL) 8.4 Gran % (42.2 - 75.2 %) 89.8 H Lymphocytes % (20.5 - 51.1 %) 3.6 L Monocytes % (1.7 - 9.3 %) 6.2 Eosinophils % (0 - 5 %) 0.2 Basophils % (0.0 - 2.0 %) 0.2 Absolute Granulocytes (1.4 - 6.5 /CUMM) 7.9 H Absolute Lymphocytes (1.2 - 3.4 /CUMM) 0.3 L Absolute Monocytes (0.10 - 0.60 /CUMM) 0.5 Absolute Eosinophils (0.0 - 0.7 /CUMM) 0 Absolute Basophils (0.0 - 0.2 /CUMM) 0 Microbiology Date/Time Procedure - Status Source Growth 01/07 06 Legionella Antigen - COMP URINE ROUT 01/07 0645 Streptococcus pneumoniae Antigen (M - COMP URINE ROUT 01/06 2100 Influenza Virus A & B Rapid Smear - COMP NASOPHARYN 01/07 2040 Blood Culture - RES BLOOD 01/06 1815 Blood Culture - RES BLOOD Impression/Plan Impression/Plan Impression/Plan: General Appearance Alert, Oriented X3, Cooperative, No Acute Distress Skin Temp/Moisture Exam: Warm/Dry Sepsis Skin Exam (color): Normal for Ethnicity HEENT Atraumatic, PERRLA, EOMI, Mucous Membr. moist/pink Cardiovascular Regular Rate, Normal S1, Normal S2, harsh 4/6 holosystolic murmur Lungs bibasilar crackles Abdomen Normal Bowel Sounds, Soft, No Tenderness Neurological Normal Speech, Normal Tone, Sensation Intact, Cranial Nerves 3-12 NL Extremities dependent 1+ pitting edema of the distal LEs L>R Vascular Normal Pulses, Pulses Symmetrical MBS IMPRESSION: 1. Mildly disordered oral phase of swallowing with all consistencies with piecemeal deglutition, premature spillage of contrast into the vallecula and varying degrees of pooling of contrast within the vallecula. 2. Penetration of contrast with thin liquids is seen. 3. Incidental note is made of prominent cricopharyngeus muscle hypertrophy. 4. Speech pathologist assessment issued separately. Chest CT IMPRESSION: Moderate right pleural effusion. Bilateral lower lobe consolidations. Medial right upper lobe scarring. Recommendation is for a followup chest series to be obtained following treatment and/or resolution of symptoms to assure resolution of this appearance. DICTATED BY: Marty Ovalles MD DATE/TIME DICTATED:01/06/182315 IMPRESSION 82-year-old pleasant woman past medical history significant for bronchiectasis, frequent recurrent pneumonias last one in September 2017, hypertension, hyperlipidemia, coronary artery disease, hypothyroidism, GERD, thoracic abdominal aorta status post surgery, aortic valve replacement 2015, trigeminal neuralgia status post thermal ablation with residual left nasolabial numbness came in for evaluation of worsening shortness of breath since past 1 week. 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 ( effusion is due to post op pleurisy from her aorta and cardiac surg and not a good candidate for decortication as her effusions are small and stable with underlying trapped lung) * Occ aspiration and MBS as noted above * Other issues stable with sig valvular heart disease PLAN cont abx for seven days Asp precautions - see speech note Keep hob up at night NEbs prn only if she is wheezing Chest pt with acepella sputum culture Nebs Dvt prophylaxis Ok to dc soon
[2018-01-08 14:23] VITALS: BP 102/72
[2018-01-08 22:07] VITALS: BP 110/60
[2018-01-09 06:33] VITALS: BP 120/82
[2018-01-09] MEDS ORDERED: LEVAQUIN500 M1 PO (09:52)
--- NOTE | 2018-01-09 09:55 | Patient Discharge Instructions ---
Discharge Instructions General Discharge Information You were seen/treated for: PNEUMONIA Special Instructions: 1.PLEASE F/U WITTH YOUR PCP WITHIN 7 DAYS OF DISCHARGE. 2. HYDROCHLORTHIAZIDE HAS BEEN DISCONTINUED FOR LOW BP, PLEASE DISCUSS WITH PCP ABOUT RESTARTING IT. 3.PLEASE FINISH COURSE OF ANTABIOTICS Diet Recommended Diet: REGULAR WITH NECTAR THICK LIQUIDS Activity Full Activity/No Limits: Yes ( TOLERATED) Acute Coronary Syndrome Inclusion Criteria At DC or during hospital stay patient has or had the following: ACS DIAGNOSIS No Discharge Core Measures Meds if any: Prescribed or Continued at Discharge Meds if any: NOT Prescribed or Continued at Discharge Congestive Heart Failure Inclusion Criteria At DC or during hospital stay patient has or had the following: CHF DIAGNOSIS No Discharge Core Measures Meds if any: Prescribed or Continued at Discharge Meds if any: NOT Prescribed or Continued at Discharge Cerebrovascular accident Inclusion Criteria At DC or during hospital stay patient has or had the following: CVA/TIA Diagnosis No Discharge Core Measures Meds if any: Prescribed or Continued at Discharge Meds if any: NOT Prescribed or Continued at Discharge Venous thromboembolism Inclusion Criteria VTE Diagnosis No Discharge Core Measures - Per Current guidelines, there needs to be overlap - treatment for the first 5 days of Warfarin therapy. - If discharged on Warfarin prior to 5 days of - overlap therapy, the patient will need to be - assessed for post discharge needs including - *Post discharge parental anticoagulation - *Warfarin and/or parental anticoagulation education - *Follow up date to check INR post discharge Meds if any: Prescribed or Continued at Discharge Note: Overlap Therapy is Warfarin and Anticoagulant Meds if any: NOT Prescribed or Continued at Discharge
--- NOTE | 2018-01-09 10:02 | PN- Housestaff ---
See Addendum Subjective Follow-up For: PNEUMONIA Complaints: no complaints Subjective: Patient seen and examined. No overnight events. No complaint.She reports improvement in cough oxygen requirement has been tapered to room air. BP stable after didcontinuation of HCTZ Review of Systems Constitutional: Reports: no symptoms. EENTM: Reports: no symptoms. Cardiovascular: Reports: no symptoms. Respiratory: Reports: no symptoms. Gastrointestinal: Reports: no symptoms. Genitourinary: Reports: no symptoms. Musculoskeletal: Reports: no symptoms. Objective Last 24 Hrs of Vital Signs/I&O Vital Signs Date Time Temp Pulse Resp B/P B/P Pulse O2 O2 Flow FiO2 Mean Ox Delivery Rate 01/09 0844 92 Room Air 01/09 0633 98.0 64 16 120/82 94 Room Air 01/09 0000 Room Air 01/08 2207 98.0 85 19 110/60 95 Room Air 01/08 2031 95 Room Air 01/08 1605 95 Room Air 01/08 1423 98.6 67 18 102/72 96 Room Air 01/08 1147 95 Room Air Intake & Output 01/09 1600 01/09 0800 01/09 0000 Intake Total 320 150 Output Total Balance 320 150 Intake, Oral 320 150 Physical Exam General Appearance: Alert, Oriented X3, Cooperative, No Acute Distress Skin: No Rashes Skin Temp/Moisture Exam: Warm/Dry Sepsis Skin Exam (color): Normal for Ethnicity HEENT: Atraumatic, PERRLA, EOMI Neck: No JVD Cardiovascular: Regular Rate, Normal S1, Normal S2, systolic murmur Lungs: Clear to Auscultation, diminished air entry bilaterally Abdomen: Normal Bowel Sounds, Soft Neurological: Normal Speech Current Medications: Current Medications Sig/Rose Start time Last Medication Dose Route Stop Time Status Admin Albuterol Sulfate 3 ML EVERY 4 HRS/AWAKE 01/07 1200 AC 01/09 INH 0844 Aspirin 81 MG DAILY 01/07 1000 AC 01/09 PO 0907 Enoxaparin Sodium 40 MG DAILY 01/07 1000 AC 01/09 SC 0909 Hydrochlorothiazide 25 MG QAM 01/07 1000 DC 01/07 PO 0836 Levofloxacin 500 MG DAILY 01/07 1000 AC 01/09 PO 0907 Levothyroxine Sodium 0.1 MG DAILY AC 01/07 0700 AC 01/09 PO 0546 Metoprolol Succinate 12.5 MG DAILY 01/07 1000 AC 01/09 PO 0907 Last 24 Hrs of Lab/Juan Pablo Results Last 24 Hrs of Labs/Mics: Laboratory Tests 01/09/18 0740: Anion Gap 9, Estimated GFR > 60, BUN/Creatinine Ratio 21.3 01/08/18 1015: CBC w Diff NO MAN DIFF REQ, RBC 4.08 L, MCV 88.9, MCH 29.4, MCHC 33.0, RDW 15.9 H, MPV 8.8, Gran % 80.6 H, Lymphocytes % 7.3 L, Monocytes % 11.4 H, Eosinophils % 0.4, Basophils % 0.3, Absolute Granulocytes 6.0, Absolute Lymphocytes 0.5 L, Absolute Monocytes 0.8 H, Absolute Eosinophils 0, Absolute Basophils 0 Microbiology 01/09 2328 LOWER RESP: Respiratory Culture - RECD 01/09 2328 LOWER RESP: Gram Stain - RECD Assessment/Plan Assessment: Ms. Garcia is a 82-year-old female with an extensive past medical history significant for bronchiectasis with recurrent pneumonias and pleural effusions s /p 5 thoracenteses, thoracic aortic aneurysm status post repair with bioprosthetic aortic valve replacement, hypothyroidism, chronic hyponatremia, who presents with SOB Problem list: Community-acquired pneumonia Hypotension Hyponatremia-chronic Plan: Significant improvement in clinical status. Patient is saturating comfortably on room air. -TRC/nebs PRN -Acapella PRN -Cultures have been negative so far -Aspiration precautions -Keep head of the bed up -Blood pressure stable today after discontinuation of HCTZ. Patient was instructed to discuss with PCP post discharge about restarting the medication again. -We will be discharged today on Levaquin to complete a total course of 7 days. -Pulmonology following. Patient has history of multiple thoracentesis in the past. No plan on thoracentesis at this time. -MBS done, patient is on regular diet with nectar thick liquids as per swallow recommendations. Diet: Heart healthy, nectar thick liquids DVT prophylaxis: Enoxaparin Code: Full Problem List: 1. Pneumonia 2. Hyponatremia Pain Ratin Pain Location: na Pain Goal: Remain pain free Pain Plan: na Tomorrow's Labs & Rationales: na
--- NOTE | 2018-01-09 12:22 | PN- Pulmonary ---
Subjective HPI/Critical Care Issues: Patient seen and examined. No overnight events. No complaint.She reports improvement in cough oxygen requirement has been tapered to room air. BP stable after didcontinuation of HCTZ Review of Systems Constitutional: Reports: no symptoms. EENTM: Reports: no symptoms. Cardiovascular: Reports: no symptoms. Respiratory: Reports: no symptoms. Gastrointestinal: Reports: no symptoms. Genitourinary: Reports: no symptoms. Musculoskeletal: Reports: no symptoms. Objective Current Medications: Current Medications Sig/Rose Start time Last Medication Dose Route Stop Time Status Admin Albuterol Sulfate 3 ML EVERY 4 HRS/AWAKE 01/07 1200 AC 01/09 INH 0844 Aspirin 81 MG DAILY 01/07 1000 AC 01/09 PO 0907 Enoxaparin Sodium 40 MG DAILY 01/07 1000 AC 01/09 SC 0909 Levofloxacin 500 MG DAILY 01/07 1000 AC 01/09 PO 0907 Levothyroxine Sodium 0.1 MG DAILY AC 01/07 0700 AC 01/09 PO 0546 Metoprolol Succinate 12.5 MG DAILY 01/07 1000 AC 01/09 PO 0907 Vital Signs & I&O Last 24 Hrs of Vitals and I&O: Vital Signs Date Time Temp Pulse Resp B/P B/P Pulse O2 O2 Flow FiO2 Mean Ox Delivery Rate 01/09 0844 92 Room Air 01/09 0633 98.0 64 16 120/82 94 Room Air 01/09 0000 Room Air 01/08 2207 98.0 85 19 110/60 95 Room Air 01/08 2031 95 Room Air 01/08 1605 95 Room Air 01/08 1423 98.6 67 18 102/72 96 Room Air Intake & Output 01/09 1600 08 0800 01/09 0000 Intake Total 320 150 Output Total Balance 320 150 Intake, Oral 320 150 Laboratory Tests 01/09 01/08 04 0740 1015 0750 Chemistry Sodium (137 - 145 mmol/L) 136 L Potassium (3.5 - 5.1 mmol/L) 4.1 Chloride (98 - 107 mmol/L) 101 Carbon Dioxide (22 - 30 mmol/L) 27 Anion Gap (5 - 16) 9 BUN (7 - 17 mg/dL) 17 Creatinine (0.5 - 1.0 mg/dL) 0.8 Estimated GFR (>60 ml/min) > 60 BUN/Creatinine Ratio (7 - 25 %) 21.3 Coagulation PT (9.4 - 12.5 SEC) 11.8 INR (0.90 - 1.19) 1.08 Hematology CBC w Diff NO MAN DIFF REQ WBC (4.8 - 10.8 /CUMM) 7.4 RBC (4.20 - 5.40 /CUMM) 4.08 L Hgb (12.0 - 16.0 G/DL) 12.0 Hct (37 - 47 %) 36.3 L MCV (81.0 - 99.0 FL) 88.9 MCH (27.0 - 31.0 PG) 29.4 MCHC (33.0 - 37.0 G/DL) 33.0 RDW (11.5 - 14.5 %) 15.9 H Plt Count (130 - 400 /CUMM) 223 MPV (7.4 - 10.4 FL) 8.8 Gran % (42.2 - 75.2 %) 80.6 H Lymphocytes % (20.5 - 51.1 %) 7.3 L Monocytes % (1.7 - 9.3 %) 11.4 H Eosinophils % (0 - 5 %) 0.4 Basophils % (0.0 - 2.0 %) 0.3 Absolute Granulocytes (1.4 - 6.5 /CUMM) 6.0 Absolute Lymphocytes (1.2 - 3.4 /CUMM) 0.5 L Absolute Monocytes (0.10 - 0.60 /CUMM) 0.8 H Absolute Eosinophils (0.0 - 0.7 /CUMM) 0 Absolute Basophils (0.0 - 0.2 /CUMM) 0 Microbiology Date/Time Procedure - Status Source Growth 01/09 2328 Respiratory Culture - RES LOWER RESP 01/08 2328 Gram Stain - RES LOWER RESP 01/07 0645 Legionella Antigen - COMP URINE ROUT 01/07 0645 Streptococcus pneumoniae Antigen (M - COMP URINE ROUT 01/06 2100 Influenza Virus A & B Rapid Smear - COMP NASOPHARYN 01/07 2040 Blood Culture - RES BLOOD 01/06 1815 Blood Culture - RES BLOOD Impression/Plan Impression/Plan Impression/Plan: General Appearance Alert, Oriented X3, Cooperative, No Acute Distress Skin Temp/Moisture Exam: Warm/Dry Sepsis Skin Exam (color): Normal for Ethnicity HEENT Atraumatic, PERRLA, EOMI, Mucous Membr. moist/pink Cardiovascular Regular Rate, Normal S1, Normal S2, harsh 4/6 holosystolic murmur Lungs bibasilar crackles Abdomen Normal Bowel Sounds, Soft, No Tenderness Neurological Normal Speech, Normal Tone, Sensation Intact, Cranial Nerves 3-12 NL Extremities dependent 1+ pitting edema of the distal LEs L>R Vascular Normal Pulses, Pulses Symmetrical MBS IMPRESSION: 1. Mildly disordered oral phase of swallowing with all consistencies with piecemeal deglutition, premature spillage of contrast into the vallecula and varying degrees of pooling of contrast within the vallecula. 2. Penetration of contrast with thin liquids is seen. 3. Incidental note is made of prominent cricopharyngeus muscle hypertrophy. 4. Speech pathologist assessment issued separately. Chest CT IMPRESSION: Moderate right pleural effusion. Bilateral lower lobe consolidations. Medial right upper lobe scarring. Recommendation is for a followup chest series to be obtained following treatment and/or resolution of symptoms to assure resolution of this appearance. DICTATED BY: Marty Ovalles MD DATE/TIME DICTATED:01/06/182315 IMPRESSION 82-year-old [place] woman past medical history significant for bronchiectasis, frequent recurrent pneumonias last one in September 2017, hypertension, hyperlipidemia, coronary artery disease, hypothyroidism, GERD, thoracic abdominal aorta status post surgery, aortic valve replacement 2015, trigeminal neuralgia status post thermal ablation with residual left nasolabial numbness came in for evaluation of worsening shortness of breath. 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 ( effusion is due to post op pleurisy from her aorta and cardiac surg and not a good candidate for decortication as her effusions are small and stable with underlying trapped lung) * Occ aspiration and MBS as noted above * Other issues stable with sig valvular heart disease PLAN cont abx for seven days Asp precautions - see speech note Keep hob up at night NEbs prn only if she is wheezing Chest pt with acepella sputum culture Nebs Dvt prophylaxis Ok to dc
== END 2018-01-09 14:30 | DRG 178 ==
LOC: ERH 19:06 → 2NA 21:17 → ERHI 21:17 → ENRESERV 01-07 00:22 → 2NA 01-07 01:16 → ENPENDDIS 01-09 13:04 → 2NA 01-09 14:30
PROVIDERS: Internal Medicine; Physician Assistant Medical; Student in an Organized Health Care Education/Training Program
DX: J69.0 Pneumonitis due to inhalation of food and vomit (principal); E87.1 Hypo-osmolality and hyponatremia; E03.9 Hypothyroidism, unspecified; J47.9 Bronchiectasis, uncomplicated; E78.5 Hyperlipidemia, unspecified; Z87.01 Personal history of pneumonia (recurrent); I25.10 Atherosclerotic heart disease of native coronary artery without angina pectoris; Z95.3 Presence of xenogenic heart valve; K21.9 Gastro-esophageal reflux disease without esophagitis; G50.0 Trigeminal neuralgia; Z88.0 Allergy status to penicillin; Z88.8 Allergy status to other drugs, medicaments and biological substances
CPT/HCPCS: 2NASP; ERO; 36592; 71045; 74230; 82436; 82784; 87040; 87070; 87449; 87450; 87804; 87804-59; 93005; 93010; 96374; J0696; J1650; J2930; J3490; J7040